=== PATIENT | male | born 1975 | race Caucasian/White ===

== ENCOUNTER 2017-09-04 16:18 | Emergency (ER) | payer OTHER ==
[2017-09-04 19:55] VITALS: BP 138/87
--- NOTE | 2017-09-04 20:11 | UC ---
Throat Pain/Nasal Jose Alberto HPI - HPI Summary HPI Summary: The patient here to urgent care this afternoon with chief complaint 3 days of sinus pain and congestion nasal drainage - History of Current Complaint Chief Complaint: UCGeneralIllness Stated Complaint: CONGESTION Time Seen by Provider: 09/04/17 20:02 Hx Obtained From: Patient Onset/Duration: Sudden Onset, Gradual Onset, Lasting Days, Resolved Severity: Moderate Pain Intensity: 0 Cough: None Associated Signs & Symptoms: Positive: Negative - No - Allergies/Home Medications Allergies/Adverse Reactions: Allergies Allergy/AdvReac Type Severity Reaction Status Date / Time bee stings Allergy Intermediate Hives Uncoded 09/04/17 19:55 Home Medications: Home Medications Blood Pressure Med 1 tab DAILY 09/04/17 [History Confirmed 09/04/17] EPINEPHrine [Epipen] 0.3 mg IJ SEE INSTRUCTIONS PRN 09/04/17 [History Confirmed 09/04/17] PMH/Surg Hx/FS Hx/Imm Hx Previously Healthy: No Cardiovascular History: Hypertension - Surgical History Surgical History: None - Family History Known Family History: Positive: None - Social History Occupation: Employed Full-time Lives: With Family Alcohol Use: None Substance Use Type: None Smoking Status (MU): Never Smoked Tobacco Review of Systems Constitutional: Chills, Fatigue Skin: Negative Eyes: Negative ENT: Ear Ache, Nasal Discharge, Sinus Congestion, Sinus Pain/Tenderness Respiratory: Negative Cardiovascular: Negative Gastrointestinal: Negative Genitourinary: Negative Motor: Negative Neurovascular: Negative Musculoskeletal: Negative Neurological: Negative Psychological: Negative Is Patient Immunocompromised?: No All Other Systems Reviewed And Are Negative: Yes Physical Exam Triage Information Reviewed: Yes Appearance: Well-Appearing, No Pain Distress, Well-Nourished Vital Signs: Initial Vital Signs Temp 97.8 F 09/04/17 19:51 Pulse 102 09/04/17 19:51 Resp 16 09/04/17 19:51 BP 138/87 09/04/17 19:51 Pulse Ox 96 09/04/17 19:51 Vital Signs Reviewed: Yes Eye Exam: Normal Eyes: Positive: Conjunctiva Clear ENT Exam: Normal ENT: Positive: Normal ENT inspection, Hearing grossly normal, Pharynx normal, Nasal congestion, Nasal drainage, TMs normal, Dental tenderness, Sinus tenderness, Uvula midline. Negative: Tonsillar swelling, Tonsillar exudate, Trismus, Muffled voice, Hoarse voice Dental Exam: Normal Neck exam: Normal Neck: Positive: Supple, Nontender, No Lymphadenopathy Respiratory Exam: Normal Respiratory: Positive: Chest non-tender, Lungs clear, Normal breath sounds, No respiratory distress, No accessory muscle use Cardiovascular Exam: Normal Cardiovascular: Positive: RRR, No Murmur, Pulses Normal, Brisk Capillary Refill Musculoskeletal Exam: Normal Musculoskeletal: Positive: Strength Intact, ROM Intact, No Edema Neurological Exam: Normal Neurological: Positive: Alert, Muscle Tone Normal - Last Psychological Exam: Normal Skin Exam: Normal Throat Pain/Nasal Course/Dx - Course Assessment/Plan: Patient is to try Mucinex ibuprofen Flonase nasal spray. if no improvement in the next 4-5 days then can add antibiotics. Patient verbalizes understanding home in good condition - Differential Dx/Diagnosis Provider Diagnoses: Rhinosinusitis Discharge - Sign-Out/Discharge Documenting (check all that apply): Discharge - Discharge Plan Condition: Stable Disposition: HOME Prescriptions: Amoxicillin/Clavulanate TAB* [Augmentin TAB 875*] 875 mg PO BID #20 tab Fluticasone NASAL SPRAY 50MCG* [Flonase NASAL SPRAY 50MCG*] 2 spray LEFT NARE DAILY #1 btl Patient Education Materials: Decongestant/Expectorant (By mouth), Sodium Chloride (Into the nose), Sinusitis (ED), How to Use Nasal Dyer (ED) Referrals: Az Hyde MD [Primary Care Provider] - If Needed - Billing Disposition and Condition Condition: STABLE Disposition: HOME
== END 2017-09-04 20:18 | disposition home or self-care (01) ==
LOC: UCCORT 16:18
DX: J32.9 Chronic sinusitis, unspecified (principal)
CPT/HCPCS: 99202; G0463

== ENCOUNTER 2018-09-28 15:15 | Emergency (ER) | payer OTHER ==
[2018-09-28 15:33] VITALS: BP 134/95
--- NOTE | 2018-09-28 15:49 | ED ---
Abdominal Pain/Male - HPI Summary HPI Summary: pt presents to [facility] for evaluation of his epigastric pain. it does not radiate to his back. he denies drinking alcohol on a daily basis. he states it happens every time he eats. it does not matter what he eats. he still has his gallbladder. he states on friday he had a gi bug and he vomited several times. this resolved by friday evening. he states his appetite has not been very good lately. he denies any fever or chills. - History of Current Complaint Chief Complaint: UCGI Stated Complaint: ABDOMINAL PAIN Hx Obtained From: Patient Onset/Duration: Sudden Onset Timing: Intermittent Severity Initially: Mild Severity Currently: Mild Pain Intensity: 7 Location: Epigastric Character: Cramping Aggravating Factor(s): Food Alleviating Factor(s): Nothing Associated Signs And Symptoms: Positive: Blood in Stool - on occassion, Decreased Appetite, Vomiting. Negative: Diaphoresis, Fever, Cough, Chest Pain, Back Pain, Constipation, Urinary Symptoms, Diarrhea - Allergies/Home Medications Allergies/Adverse Reactions: Allergies Allergy/AdvReac Type Severity Reaction Status Date / Time bee stings Allergy Intermediate Hives Uncoded 09/28/18 15:25 Home Medications: Home Medications Famotidine TAB* [Pepcid 20 MG TAB*] 20 mg PO BID 09/28/18 [History Confirmed ] PMH/Surg Hx/FS Hx/Imm Hx Previously Healthy: Yes Cardiovascular History: Reports: Hx Hypertension Infectious Disease History: No Infectious Disease History: Denies: Traveled Outside the [place] in Last 30 Days - Family History Known Family History: Positive: None - Social History Alcohol Use: None Substance Use Type: Reports: None Smoking Status (MU): Never Smoked Tobacco Review of Systems Constitutional: Negative Negative: Fever Eyes: Negative ENT: Negative Cardiovascular: Negative Respiratory: Negative Positive: Abdominal Pain, Vomiting - vomiting friday. Negative: Diarrhea Genitourinary: Negative Musculoskeletal: Negative Skin: Negative Neurological: Negative Psychological: Normal All Other Systems Reviewed And Are Negative: No Physical Exam Triage Information Reviewed: Yes Vital Signs On Initial Exam: Initial Vitals Temp Pulse Resp BP Pulse Ox 98.2 F 78 16 134/95 99 09/28/18 15:27 09/28/18 15:27 09/28/18 15:27 09/28/18 15:27 09/28/18 15:27 Vital Signs Reviewed: Yes Appearance: Positive: Well-Appearing, No Pain Distress, Well-Nourished Skin: Positive: Warm, Dry Head/Face: Positive: Normal Head/Face Inspection Eyes: Positive: Normal, EOMI, PATSY ENT: Positive: Pharynx normal Respiratory/Lung Sounds: Positive: Clear to Auscultation, Breath Sounds Present , Decreased Breath Sounds Cardiovascular: Positive: Normal, RRR Abdomen Description: Positive: Soft, Other: - tender to epigastric area. Bowel Sounds: Positive: Present Musculoskeletal: Positive: Normal, Strength/ROM Intact Neurological: Positive: Normal, Sensory/Motor Intact, Alert, Oriented to Person Place, Time, CN Intact II-III Psychiatric: Positive: Normal AVPU Assessment: Alert Diagnostics - Vital Signs Vital Signs Temp Pulse Resp BP Pulse Ox 09/28/18 15:27 98.2 F 78 16 134/95 99 - Laboratory Lab Statement: Any lab studies that have been ordered have been reviewed, and results considered in the medical decision making process. Abdominal Pain Male Course/Dx - Course Course Of Treatment: I discussed with pt that the differential includes cardiac issues, gallbladder problems, pancreatitis, gastritis, peptic ulcer disease, reflux. US has already left for the day. we are unable to get labs done today. I encouraged pt to go to the ED in [place] for further evaluation. I called the ED and was on hold for 5 minutes. I was called to see another pt. Pt stated he would go directly to the emergency dept for further evaluation. - Diagnoses Provider Diagnoses: Abdominal pain Discharge - Sign-Out/Discharge Documenting (check all that apply): Patient Departure All imaging exams completed and their final reports reviewed: No Studies - Discharge Plan Condition: Stable Disposition: [facility] Patient Education Materials: Acute Abdominal Pain (ED) Referrals: Sherri Mauro PA [Primary Care Provider] - Additional Instructions: Go immediately to [place] [facility] for further evaluation of your abdominal pain. You need to establish care with a primary care physician. You have been given a referral on your discharge papers. Return if worse or any new symptoms. - Billing Disposition and Condition Condition: STABLE Disposition: [facility]
== END 2018-09-28 15:58 | disposition short-term general hospital (02) ==
LOC: UCCORT 15:15
DX: R10.9 Unspecified abdominal pain (principal); I10 Essential (primary) hypertension; Z91.030 Bee allergy status
CPT/HCPCS: 99212; G0463